=== PATIENT | female | born 1995 | race African-American/Black ===

== ENCOUNTER 2020-02-28 15:05 | Emergency (ER) | payer MEDICAID ==
[~2020-02-28] VITALS: Ht 167.6 cm; Wt 58.9 kg
[2020-02-28 15:21] VITALS: BP 120/72
[2020-02-28] MEDS ORDERED: LIDOCAINE HCL/EPINEPHRINE 1%-EPI 1:100,000 20 ML VIAL INFIL ONE (16:45)
== END 2020-02-28 18:06 | disposition home or self-care (01) ==
LOC: ER 15:05
DX: S00.551A Superficial foreign body of lip, initial encounter (principal); J45.909 Unspecified asthma, uncomplicated; W45.8XXA Other foreign body or object entering through skin, initial encounter; Y93.89 Activity, other specified; Y92.018 Other place in single-family (private) house as the place of occurrence of the external cause
CPT/HCPCS: 99282; J3490

== ENCOUNTER 2020-11-22 11:53 | Emergency (ER) | payer MEDICAID ==
[~2020-11-22] VITALS: Ht 165.1 cm; Wt 80.0 kg
[2020-11-22] MEDS ORDERED: TETANUS, DIPHTHERIA, PERTUSSIS VAC/PF 0.5ML (>7YR OLD) IM ONE (14:00)
[2020-11-22] MEDS ORDERED: BACITRACIN ZINC OINT UDPKT TOP SCH (14:00)
[2020-11-22] MEDS ORDERED: BO1 TP (14:09)
[2020-11-22] MEDS ORDERED: CEPH500C2 PO (14:09)
[2020-11-22] MEDS ORDERED: IBUP-2029 PO (14:09)
[2020-11-22 14:50] VITALS: BP 100/65
== END 2020-11-22 14:55 | disposition home or self-care (01) ==
LOC: ER 11:53
DX: T23.231A Burn of second degree of multiple right fingers (nail), not including thumb, initial encounter (principal); T23.201A Burn of second degree of right hand, unspecified site, initial encounter; L03.113 Cellulitis of right upper limb; J45.909 Unspecified asthma, uncomplicated; X19.XXXA Contact with other heat and hot substances, initial encounter; Y93.89 Activity, other specified; Y92.018 Other place in single-family (private) house as the place of occurrence of the external cause
CPT/HCPCS: 90471; 90715; 99283

== ENCOUNTER 2022-09-25 10:49 | Emergency (ER) | payer OTHER ==
[~2022-09-25] VITALS: Ht 165.1 cm; Wt 69.0 kg
[~2022-09-25 10:49] MED LIST: BO1 TP; CEPH500C2 PO; IBUP-2029 PO
[2022-09-25 11:10] VITALS: BP 114/63
== END 2022-09-25 16:36 | disposition home or self-care (01) ==
LOC: ER 10:49
DX: S05.12XA Contusion of eyeball and orbital tissues, left eye, initial encounter (principal); S00.83XA Contusion of other part of head, initial encounter; K02.9 Dental caries, unspecified; J45.909 Unspecified asthma, uncomplicated; Y04.0XXA Assault by unarmed brawl or fight, initial encounter; Y93.89 Activity, other specified; Y92.89 Other specified places as the place of occurrence of the external cause
CPT/HCPCS: 70486; 81025; 99284